=== PATIENT | male | born 1990 | race Caucasian/White ===

== ENCOUNTER 2020-10-30 12:20 | Emergency (ER) | payer OTHER ==
[~2020-10-30] VITALS: Ht 185.4 cm; Wt 101.7 kg
--- NOTE | 2020-10-30 13:28 | REP ---
INDICATION: right testicular pain and swelling. COMPARISON: None. TECHNIQUE: Real-time sonographic evaluation of scrotum and contents performed. FINDINGS: The testicles are normal in size and echotexture, right testicle measuring 5.0 x 2.3 x 3.4 cm and left testicle 4.7 x 2.4 x 2.9 cm. There is no testicular mass or torsion. Blood flow is seen in each testicle with duplex Doppler evaluation. There is a 3 mm cyst in the head of the right epididymis. There appears to be tubular ectasia of the body and tail of the right epididymis. Otherwise no inflammatory changes are seen and there is no hydrocele or fluid collection. IMPRESSION: No testicular mass or torsion. Diffuse tubular ectasia of the right epididymis. <Electronically signed by Freedom Santoyo > 10/30/20 0943
[2020-10-30 13:31] LABS: BASO # 0.1 10^3/uL (0.0-0.2); BASO % 1.2 % (0.0-1.0); EOS # 0.2 10^3/uL (0.0-0.5); EOS % 3.8 % (0.0-3.0); HEMATOCRIT 44.2 % (42.0-52.0); HEMOGLOBIN 14.7 g/dl (13.5-17.5); LYMPH # 1.7 10^3/uL (1.5-5.0); LYMPH % 35.2 % (24.0-44.0); MEAN CORPUSCULAR HEMOGLOBIN 29.3 pg (27.0-33.0); MEAN CORPUSCULAR HGB CONC 33.3 g/dl (32.0-36.5); MEAN CORPUSCULAR VOLUME 88.2 fl (80.0-96.0); MONO # 0.6 10^3/uL (0.0-0.8); MONO % 11.3 % (2.0-8.0); NEUTROPHILS # 2.4 10^3/uL (1.5-8.5); NEUTROPHILS % 48.3 % (36.0-66.0); PLATELET COUNT, AUTOMATED 193 10^3/uL (150-450); RED BLOOD COUNT 5.01 10^6/uL (4.30-6.10)
[2020-10-30] MEDS ORDERED: DOXY100C37 PO (14:02)
[2020-10-30] MEDS ORDERED: cefTRIAXone 500MG VIAL (J0696 PER 250MG) IM ONE (14:05)
[2020-10-30] MEDS ORDERED: LIDOCAINE 1% SDV 5ML VIAL DILUENT ONE (14:05)
[2020-10-30 14:28] VITALS: BP 128/71
[2020-10-30 16:01] LABS: CHLAMYDIA DNA AMPLIFICATION NEGATIVE (NEGATIVE); GC DNA AMPLIFICATION NEGATIVE (NEGATIVE)
== END 2020-10-30 14:41 | disposition home or self-care (01) ==
LOC: M ED 12:20
DX: N45.1 Epididymitis (principal)
CPT/HCPCS: 36415; 76870; 80047; 81001; 85025; 87661; 93976; 96372; 99284; J0696